=== PATIENT | female | born 1960 | race Caucasian/White ===

== ENCOUNTER 2019-11-19 09:33 | Day surgery (SDC) | payer BC ==
[2019-11-11 17:53] VITALS: BMI 24.0
[2019-11-19] MEDS ORDERED: MIDAZOLAM HCL 2 MG/2 ML SINGLE DOSE VIAL ONE (12:17)
[2019-11-19] MEDS ORDERED: PROPOFOL 20 ML ONE (12:17)
[2019-11-19] MEDS ORDERED: ONDANSETRON 4 MG/2 ML VIAL ONE (12:20)
[2019-11-19] MEDS ORDERED: DEXAMETHASONE SOD PHOSPHATE 4 MG/1 ML VIAL ONE (12:20)
[2019-11-19] MEDS ORDERED: LIDOCAINE HCL/PF 2% SDV 5ML VIAL ONE (12:20)
[2019-11-19] MEDS ORDERED: EPINEPHrine/PF 1 MG/1 ML (1:1,000) AMPULE ONE (12:27)
[2019-11-19] MEDS ORDERED: BUPIVACAINE HCL/PF 2.5 MG/ML - 30 ML VIAL IJ ONE (12:27)
[2019-11-19] MEDS ORDERED: EPHEDRINE SULFATE/0.9% NACL/PF 50 MG/10 ML SYRINGE NR ONE (12:55)
[2019-11-19] MEDS ORDERED: ceFAZolin SODIUM 1 GM VIAL ONE (12:59)
[2019-11-19] MEDS ORDERED: BUPIVACAINE HCL/PF 0.25% (2.5MG/ML) 10 ML VIAL IJ ONE (13:00)
[2019-11-19] MEDS ORDERED: DESFLURANE GAS 240 ML BOTTLE IH ONE (13:23)
[2019-11-19] MEDS ORDERED: KETOROLAC TROMETHAMINE 30 MG/1 ML VIAL ONE (13:29)
[2019-11-19 14:48] VITALS: TEMP 97.8
[2019-11-19] MEDS ORDERED: ONDANSETRON 4 MG/2 ML VIAL IVPUSH PRN (15:02)
[2019-11-19] MEDS ORDERED: oxyCODONE HCL 5 MG TABLET PO PRN ×2 (15:02)
[2019-11-19] MEDS ORDERED: LACTATED RINGERS SOLUTION 1,000 ML IV SCH (15:15)
[2019-11-19 15:41] VITALS: BP 101/53; PULSE 68
--- NOTE | 2019-11-19 15:54 | OP ---
DATE OF OPERATION: 11/19/2019 Done at [facility] SURGEON: Edinson Pat MD VISCOSITY WORKER: FIDENCIO Polk PREOPERATIVE DIAGNOSES: 1. Right knee medial and lateral meniscal tear. 2. Right knee cartilage injury. 3. Right knee synovitis. POSTOPERATIVE DIAGNOSES: 1. Right knee medial and lateral meniscal tear. 2. Right knee cartilage injury. 3. Right knee synovitis. PROCEDURE: 1. Right knee arthroscopy with partial meniscectomy medial and lateral meniscus, CPT code 10892. 2. Right knee arthroscopy with chondroplasty and abrasion-plasty, CPT code 40728. 3. Right knee arthroscopy with synovectomy, CPT code 29876. FINDINGS: 1. Medial meniscus [id number] horn inner 1/3 and undersurface tear, posterior 30%. 2. Left knee central body tear. 3. Synovitis patellofemoral medial and lateral notch area. 4. Minor grade 1-2 changes medial joint line. 5. Central grade 2-3 changes 4 cm x 2 cm lateral tibial plateau. 6. ACL and PCL intact. 7. Diffuse grade 2-3 cartilage injury central 1/3 patella with grade 2-4 changes at patellofemoral trochlea. PROCEDURE: Informed consent was obtained. The patient came to the operating room, where the lower extremity was prepped and draped in a sterile fashion. A tourniquet was placed on the upper thigh, but not inflated. Using standard arthroscopic technique, a lateral incision and portal was made to allow for introduction of the camera into the suprapatellar bursa. This was then taken to the medial joint line, where under direct visualization, a medial incision and portal was made. Excessive synovium noted in the medial, lateral and patellofemoral and notch area was removed by an upbiter, shaver and Bovie cautery. This was found to bring in inflammatory tissue into the joint surface, a source of pain and dysfunction. Probing of the medial and lateral meniscus found tears, as described in the findings. These were removed with the upbiter and shaver and taken back to a stable rim. Grade 2 to 3 degenerative changes were treated with a chondroplasty, removing all flaking surfaces with low-setting Bovie along the periphery to prevent further flaking. Grade 4 changes, as noted, were treated with an abrasoplasty, creating a bleeding surface at the bone/cartilage interface. Aggressive debridement with shaver/adithya created bleeding surface. Micro fracture also done when indicated in findings. All areas of the knee were once again reexamined. The knee was then drained and a single suture was placed in all portals. A sterile dressing was placed and the patient was transferred to the recovery room without complication. The PA listed above was present and assisted at surgery. Their presence was absolutely medically necessary for the completion of the procedure. They helped hold the arthroscopy, pass instruments (and implants when indicated) and the procedure could not have been completed without their assistance. EDINSON PAT M.D. [id number]
--- NOTE | 2019-11-26 13:42 | PATH ---
Surgical Pathology Report Patient Name: BIBIANA ASHLEY Med. Rec. #: [id number] /Age/Gender: 1960 (Age: 59) / F Account: [id number] Location: [facility] AMBULATORY Taken: 11/19/2019 Received: 11/19/2019 Reported: 11/26/2019 Physicians: Edinson Betts M.D. Specimen(s) Received SHAVINGS RIGHT KNEE Clinical History Right knee pain Final Diagnosis KNEE, RIGHT, ARTHROSCOPIC SHAVINGS: FIBROSYNOVIAL TISSUE AND CARTILAGE. Electronically Signed Lola Campos M.D. Gross Description Received in formalin, labeled "shavings right knee," is a 4.0 x 4.0 x 0.3 cm. aggregate of chavez-yellow soft tissue fragments. A enrollment representative portion is submitted in one cassette. /11/22/2019 saudi11/22/2019
== END 2019-11-19 14:25 | disposition home or self-care (01) ==
LOC: FASU 09:33
PROVIDERS: ATTEND Orthopaedic Surgery
PROC: 0SBC4ZZ Excision of Right Knee Joint, Percutaneous Endoscopic Approach (ICD-10-PCS; 2019-11-19)
PROC: 0SBC4ZZ Excision of Right Knee Joint, Percutaneous Endoscopic Approach (ICD-10-PCS; 2019-11-19)
PROC: 0SBC4ZZ Excision of Right Knee Joint, Percutaneous Endoscopic Approach (ICD-10-PCS; principal; 2019-11-19 11:30)
DX: S83.241A Other tear of medial meniscus, current injury, right knee, initial encounter (principal); S83.281A Other tear of lateral meniscus, current injury, right knee, initial encounter; S83.8X1A Sprain of other specified parts of right knee, initial encounter; M65.861 Other synovitis and tenosynovitis, right lower leg; X58.XXXA Exposure to other specified factors, initial encounter; Y93.9 Activity, unspecified; Y92.9 Unspecified place or not applicable
CPT/HCPCS: 88304-TC; 94760